=== PATIENT | female | born 1995 | race Caucasian/White ===

== ENCOUNTER → 2019-03-12 | Outpatient (REF) | payer OTHER, SELFPAY ==
[2019-03-12 22:04] LABS: CHLAMYDIA DNA AMPLIFICATION NEGATIVE (NEGATIVE); GC DNA AMPLIFICATION NEGATIVE (NEGATIVE)
== END ==
LOC: M SFHCLERA 16:45
PROVIDERS: ATTEND Nurse Practitioner Family
DX: R10.9 Unspecified abdominal pain (principal)

== ENCOUNTER → 2019-03-12 | Outpatient (CLI) | payer OTHER ==
--- NOTE | 2019-03-13 09:19 | REP ---
ABDOMINAL SERIES: Supine and erect view of the abdomen demonstrate no free air and no compelling evidence for bowel obstruction. No significantly dilated small bowel loops are seen. No abnormal calcifications are seen. The visualized osseous structures are unremarkable. An accompanying view of the chest demonstrates no acute infiltrate. The heart and mediastinum are unremarkable. IMPRESSION: Essentially negative abdominal series. Electronically Signed by Sea Nelson MD 03/13/2019 11:30 A
== END ==
LOC: M LRY 16:24
PROVIDERS: ATTEND Nurse Practitioner Family
DX: R10.9 Unspecified abdominal pain (principal)
CPT/HCPCS: 74021; 81002; 81025; 87088; 87661; 96372; G0463; J0696; J1885